=== PATIENT | male | born 2000 | race Caucasian/White ===

== ENCOUNTER 2021-07-15 19:39 | Emergency (ER) | payer OTHER ==
[2021-07-15] MEDS ORDERED: Sodium Chloride 0.9% 10 ML Syringe FLUSH PRN (20:11)
[2021-07-15] MEDS ORDERED: Sodium Chloride 0.9% 1,000 ML IV ONE (20:13)
[2021-07-15] MEDS ORDERED: Iopamidol 755 Mg/ML 100 ML Bottle IV ONE (20:51)
== END 2021-07-15 22:14 | disposition home or self-care (01) ==
LOC: FB.ED 19:39
DX: R51.9 Headache, unspecified (principal); R03.0 Elevated blood-pressure reading, without diagnosis of hypertension
CPT/HCPCS: 36415; 70450; 70496; 70498; 80053; 83735; 85025; 99283; 99284; J3490; J7030; Q9967